=== PATIENT | female | born 1980 | race Caucasian/White ===

== ENCOUNTER → 2017-04-22 | Outpatient (CLI) | payer OTHER ==
[~2017-04-22] MED LIST: CLR10 PO; CYCL5TAB PO; LEVO75TA5 PO; PANT40TA PO
== END | disposition home or self-care (01) ==
LOC: C.LABPVFM 09:19
PROVIDERS: ATTEND Nurse Practitioner
DX: E03.9 Hypothyroidism, unspecified (principal)

== ENCOUNTER → 2018-03-29 | Outpatient (CLI) | payer OTHER | END | disposition home or self-care (01) | LOC: C.LABPVFM 12:01 | PROVIDERS: ATTEND Nurse Practitioner Family | DX: E03.9 Hypothyroidism, unspecified (principal); R53.83 Other fatigue; R42 Dizziness and giddiness; R55 Syncope and collapse; R30.0 Dysuria ==

== ENCOUNTER → 2018-03-31 | Outpatient (CLI) | payer OTHER ==
[2018-03-31 13:21] LABS: EOS % 1.9 %; EOS ABS # 0.08 K/uL (0-0.5); HEMATOCRIT 37.2 % (37-47); HEMOGLOBIN 11.2 g/dL (12.0-16.0); LYMPH ABS # 1.52 K/uL (1.2-3.4); MEAN CELL VOLUME 80.7 fL (80-100); MEAN CORPUSCULAR HEMOGLOBIN 24.3 pg (25-34); MEAN CORPUSCULAR HGB CONC 30.1 g/dl (32-36); MEAN PLATELET VOLUME 10.1 fL (7.4-10.4); MONO ABS # 0.17 K/uL (0.11-0.59); NEUT % 58.1 %; NEUT ABS # 2.45 K/uL (1.4-6.5); PLATELET COUNT 264 K/uL (130-400); RED CELL DISTRIBUTION WIDTH CV 15.6 % (11.5-14.5); RED CELL DISTRIBUTION WIDTH SD 46.1 fL (36.4-46.3); WHITE BLOOD COUNT 4.22 K/uL (4.8-10.8)
[2018-03-31 15:44] LABS: ALBUMIN 3.7 gm/dl (3.4-5.0); ALKALINE PHOSPHATASE 55 U/L (45-117); ALT/SGPT 18 U/L (12-78); AST/SGOT 11 U/L (15-37); BLOOD UREA NITROGEN 13 mg/dl (7-18); CALCIUM 8.6 mg/dl (8.5-10.1); CARBON DIOXIDE 26 mmol/L (21-32); CREATININE 0.84 mg/dl (0.60-1.20); GLUCOSE 78 mg/dl (70-99); POTASSIUM 4.1 mmol/L (3.5-5.1); SODIUM 141 mmol/L (136-145); TOTAL PROTEIN 7.4 gm/dl (6.4-8.2)
== END | disposition home or self-care (01) ==
LOC: C.LABPVFM 08:44
PROVIDERS: ATTEND Nurse Practitioner Family
DX: R42 Dizziness and giddiness (principal); R55 Syncope and collapse